=== PATIENT | female | born 1950 | race Two or more races ===

== ENCOUNTER → 2017-01-17 | Outpatient (CLI) | payer BC ==
[~2017-01-17] VITALS: Ht 154.9 cm; Wt 76.2 kg
[~2017-01-17] MED LIST: REGADENOSON 0.4 MG/5 ML DISP.SYRIN. IV ONE
--- NOTE | 2017-01-18 20:09 | RAD ---
APPROVED REPORT Test Type: Pharmacological Stress Nurse/Tech: Jodi Peacock RN Test Indications: chest pain Cardiac History: see ehr Medications: see ehr Medical History: see ehr Resting ECG: SR Resting Heart Rate: 76 bpm Resting Blood Pressure: 124/54mmHg Pretest Chest Pain: None Nurse/Tech Notes Lungs CTA, S1, S2 Consent: The procedure was explained to the patient in lay terms. Informed consent was witnessed. Kimo eout was entered into [employer]. History and Stress Test performed by Terence ParadaNDeepti Pharm. Details Pharmacologic stress testing was performed using 0.4mg per 5ml of regadenoson given intravenously ove r 7-10 seconds. Stress Symptoms No chest pain or symptoms. POST EXERCISE Reason for Termination: Infusion complete Max HR: 115 bpm Max Blood Pressure: 148/51mmHg Blood Pressure response to exercise: Normal blood pressure response during stress. Chest Pain: No. Arrhythmia: No. ST Change: No. INTERPRETATION Stress EKG Conclusion: No acute changes were noted. Imaging Protocol IMAGE PROTOCOL: Rest Tc-99m/stress Tc-99m 1 day Rest: Stress: Viability: Radiopharm.Tc99m [id number] Sestamibi Dose10.9mCi 33.9mCi Duration 15min. 12min. Img Date 01/17/2017 01/17/2017 Inj-Img [id number]. 60min. Rest Admin Site:IV - Left AntecubitalAdministrator: STRESS DATA End Diast. Vol.33.0mlAv. Heart Rate96.0bpm End Syst. Vol.6.0mlCO Index BSA2.5L/min Myocardial Mass76.0gEject. Aozfdaur77.0% Stress Rates Pk. Fill Rate5.10EDV/secLVtime Pk. Fill 178.84msec Pk. Empty Rate5.46ESV/secLVtime Pk. Kouvw278.55msec 07/05 Pk. Fill0.64EDV/sec Stress Scores Regional WT0.00Summed WT0.00 Regional WM0.00Summed WM8.00 LV Perf. Quant 17 Seg. SSS0.00 17 Seg. SRS0.00 17 Seg. SDS0.00 Stress Defect Extent (% LAD)3.10Rest Defect Extent (% LAD)0.00Rev. Defect Extent (% LAD)3.10 Stress Defect Extent (% LCX) 0.00Rest Defect Extent (% LCX)0.00Rev. Defect Extent (% LCX)0.00 Stress Defect Extent (% RCA)0.00Rest Defect Extent (% RCA)7.80Rev. Defect Extent (% RCA)0.00 Stress Defect Extent (% SANA)1.30Rest Defect Extent (% SANA)2.40Rev. Defect Extent (% SANA)1.30 Conclusion 1. There is a mild ST segment depression with pharmacological stress. 2. No significant perfusion defects to suggest myocardiak ischemia or scar. 3. Normal wall motion and wall thickening with an ejection fraction of 80%. 4. Scan indicates low risk for future cardiac events
== END | disposition home or self-care (01) ==
LOC: NM 09:01
PROVIDERS: ATTEND Specialist
DX: R07.9 Chest pain, unspecified (principal); Z79.01 Long term (current) use of anticoagulants
CPT/HCPCS: 78452; 93017; 96374; 96375; 96376; A9500; J2785